=== PATIENT | male | born 1975 | race Caucasian/White ===

== ENCOUNTER 2016-11-04 19:34 | Day surgery (SDC) | payer BC ==
--- NOTE | ~2016-11-04 | EGD ---
EGD REPORT [facility] [address] [address] NAME: MERYL VIVAS : [birth year] STATUS : PRE ER PAT#: [id number] AGE: 41 ADM/REG DATE : MR#: [id number] REPORT SERV DATE: 11/04/16 DICTATED BY: JUAQUIN GARCIA DATE: 11/04/16 REPORT STATUS : Draft TRANS[facility]IBED BY: [facility] DATE: 11/04/16 [facility] Patient Name: Meryl Vivas Date of : 1975 Attending MD: JUAQUIN GARCIA MD Procedure Date No Time: 11/04/2016 Procedure: Upper GI endoscopy Indications: Esophageal dysphagia Referring MD: MARTHA JURADO Medicines: Propofol per Anesthesia Complications: No immediate complications. Procedure: Pre-Anesthesia Assessment: - ASA Grade Assessment: II - A patient with mild systemic disease. After obtaining informed consent, the endoscope was passed under direct vision. Throughout the procedure, the patient's blood pressure, pulse, and oxygen saturations were monitored continuously. The GIF [id number] was introduced through the mouth, and advanced to the second part of duodenum. The upper GI endoscopy was accomplished without difficulty. The patient tolerated the procedure well. Findings: A benign-appearing, intrinsic moderate stenosis was found at the gastroesophageal junction and was traversed. A TTS dilator was passed through the scope. Dilation with a 15-16.5-18 mm balloon (to a maximum balloon size of 16.5 mm) dilator was performed. Estimated blood loss: none. Mucosal changes including ringed esophagus were found in the entire esophagus. Biopsies were taken with a cold forceps for histology. A small amount of food bolus which had already passed was found in the gastric body. The examined duodenum was normal. Impression: - Benign-appearing esophageal stricture. Dilated. - Esophageal mucosal changes consistent with eosinophilic esophagitis. Biopsied. - A small amount of food bolus which had already passed in the stomach. - Normal examined duodenum. Recommendation: - Mechanical soft diet today. - Use Nexium (esomeprazole) 40 mg PO BID daily. - The findings and recommendations were discussed with EGD REPORT [address] [address] NAME: MERYL VIVAS : [birth year] STATUS : PRE ER PAT#: [id number] AGE: 41 ADM/REG DATE : MR#: [id number] REPORT SERV DATE: 11/04/16 DICTATED BY: JUAQUIN GARCIA DATE: 11/04/16 REPORT STATUS : Draft TRANSCRIBED BY: [employer] DATE: 11/04/16 the patient and their spouse. - After the procedure, if you experience any pain in abdomen or chest,shortness of breath,fever,chills,blood in stool,rectal bleeding,vomiting of any material,nausea,black stools or weakness or dizziness, GO TO THE EMERGENCY IMMEDIATELY!!!!!!!!! Procedure Code(s): --- Professional --- 33069, Esophagogastroduodenoscopy, flexible, transoral; with transendoscopic balloon dilation of esophagus (less than 30 mm diameter) 00853, Esophagogastroduodenoscopy, flexible, transoral; with biopsy, single or multiple Diagnosis Code(s): --- Professional --- K22.2, Esophageal obstruction K20.9, Esophagitis, unspecified T18.2XXA, Foreign body in stomach, initial encounter R13.14, Dysphagia, pharyngoesophageal phase CPT copyright 2013 [employer]. All rights reserved. The codes documented in this report are preliminary and upon reel and rewinder operator review may be revised to meet current compliance requirements. Juaquin Garcia MD JUAQUIN GARCIA MD 11/04/2016 8:25 PM This report has been signed electronically. Number of Addenda: 0 Note Initiated On: 11/04/2016 7:31 PM Scope Withdrawal Time 0 hours 0 minutes 0 seconds [address] [id number]
[2016-11-04 19:05] LABS: BASOPHILS 0.4 %; BASOPHILS ABSOLUTE 0.04 10/3/uL (0.0-0.16); EOSINOPHILS 0.7 %; EOSINOPHILS ABSOLUTE 0.07 10/3/uL (0.0-0.53); ER CBC TAT 0 Hrs 05 Mins; HEMATOCRIT 46.1 % (40.0-51.0); HEMOGLOBIN 16.2 g/dL (13.6-17.8); IMMATURE GRANULOCYTES 0.3 %; IMMATURE GRANULOCYTES ABSOLUTE 0.03 10/3/uL (0.0-0.11); LYMPHOCYTES 16.3 %; MEAN CORPUS HGB CONC 35.1 g/dL (32.0-36.0); MEAN CORPUSCULAR HEMOGLOB 31.5 pg (26.0-34.0); MEAN CORPUSCULAR VOLUME 89.5 fL (80-100); MEAN PLATELET VOLUME 10.5 fL (9.2-13.0); MONOCYTES 6.4 %; MONOCYTES ABSOLUTE 0.67 10/3/uL (0.21-1.20); NEUTROPHILS 75.9 %; NEUTROPHILS ABSOLUTE 7.94 10/3/uL (2.02-8.40); PLATELET COUNT 213 10/3/uL (150-400); RBC DISTRIBUTION WIDTH 12.4 % (12.0-16.0); RED CELL COUNT 5.15 10/6/uL (4.7-6.1); WHITE BLOOD CELLS 10.5 10/3/uL (4.5-10.5)
[2016-11-04 19:06] LABS: MANUAL DIFF NO %
[2016-11-04 19:11] LABS: INTERNATIONAL NORMAL RATI 1.1 UNITS (-); PARTIAL THROMBO TIME 26.3 SEC (22.5-37.2); PROTIME (NOT ORD) 13.6 SEC (12.0-14.5)
[2016-11-04 19:17] LABS: BUN (BLOOD UREA NITROGEN) 11 MG/DL (6-23); CALCIUM, SERUM 8.6 MG/DL (8.5-10.4); CHLORIDE, SERUM 110 MMOL/L (96-112); CO2 (CARBON DIOXIDE) 28 MMOL/L (24-34); CREATININE 1.37 MG/DL (0.70-1.30); GFR AFRICAN AMERICAN 74 ML/MIN (>=60); GFR NON AFRICAN AMERICAN 64 ML/MIN (>=60); GLUCOSE, SERUM 79 MG/DL (60-99); SODIUM, SERUM 145 MMOL/L (135-148)
== END 2016-11-04 22:00 | disposition home or self-care (01) ==
LOC: ER 19:34 → SDC 19:38
PROVIDERS: Internal Medicine Gastroenterology; Nurse Practitioner Family
PROC: 0DB58ZX Excision of Esophagus, Via Natural or Artificial Opening Endoscopic, Diagnostic (ICD-10-PCS; principal; 2016-11-04 20:13)
PROC: 0D758ZZ Dilation of Esophagus, Via Natural or Artificial Opening Endoscopic (ICD-10-PCS; 2016-11-04 20:13)
DX: K20.9 Esophagitis, unspecified (principal); K22.2 Esophageal obstruction; T18.2XXA Foreign body in stomach, initial encounter
CPT/HCPCS: 80048; 85025; 85610; 85730; 88305; 99284; J0330; J2405; J3010